=== PATIENT | female | born 1995 | race Two or more races ===

== ENCOUNTER → 2024-05-11 10:32 | Outpatient (BNVA) | payer OTHER, SELFPAY | PROVIDERS: PCP Pediatrics; Visit Provider Physician Assistant Surgical ==

== ENCOUNTER 2024-05-15 08:07 | Outpatient (AMB) | payer OTHER, SELFPAY ==
[2024-05-15 13:07] VITALS: BMI 36.5
--- NOTE | 2024-05-15 13:07 | A.OFFVIS_ITS ---
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 BMI 36.5 Allergies amoxicillin [AMOXICILLIN] Allergy (Intermediate, Verified 05/15/24 13:09) HIVES, SWELLING Penicillins [PENICILLINS] Allergy (Intermediate, Verified 05/15/24 13:09) HIVES, SWELLING Medication List - Last Reconciled 05/15/24 by Compa Mae MD clonidine HCl 0.3 mg PO BEDTIME PRN dextroamphetamine-amphetamine 10 mg (Adderall) 10 mg PO DAILY PRN dextroamphetamine-amphetamine 25 mg ER (Adderall XR) 25 mg PO DAILY HPI 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 BMI 36.5: Details: Start time: 1.01pm, End time: 1.46pm ?I spent 40 minutes speaking with the patient on the phone plus an additional 5 minutes reviewing and updating records for a total of 45 minutes HPI Comments Details: Previous weight loss efforts: self diet and exercised Wakes up: 6.45am to 8am, Sleeps: 10pm Breakfast: skips Lunch: 11am (peanut butter sandwich, ham and cheese sandwich, oatmeal) Dinner: 5-6pm (chicken or salmon with rice or potatoes) Snacks: 2-3pm (yogurt, chips, ice cream), 7-8pm (ice cream, cake, cookies) Exercise: none Beverages: Coffee: none, tea: hot tea: 1/wk (honey), soda: Regular Coke (4 cans/d), juice: none. ETOH: none PFSH Medical History (Updated 05/15/24 @ 13:43 by Compa Mae MD) Insomnia ADHD History of pancreatitis BMI 36.0-36.9,adult Obesity Surgical History (Updated 05/11/24 @ 11:18 by EMILIO León) Hx of knee surgery Hx of cholecystectomy Family History (Updated 05/11/24 @ 11:19 by EMILIO León) Mother Cervical cancer Maternal Grandmother Breast cancer Paternal Grandmother Diabetes Paternal Aunt Diabetes Telehealth Telehealth Telehealth Platform: Telephone Location of provider rendering services: practice address Location of patient: address on file Patient Identification confirmed using: Name, : Yes Telehealth method: voice only Patient verbally consented to treatment: Yes Patient verbally consented to billing insurance company: Yes Patient informed of any privacy concerns related to visit: Yes Minutes spent on Phone/Video with Pt.: 45 Assessment & Plan Assessment & Plan (1) Obesity: Code(s): E66.9 - Obesity, unspecified Category: Medical Qualifiers: Obesity type: due to excess calories Obesity classification: adult class 2 (BMI 35 - 39.9) Serious obesity comorbidity presence: without serious comorbidity Body mass index: BMI 36.0-36.9 Qualified Code(s): E66.812 - Obesity, class 2; E66.09 - Other obesity due to excess calories; Z68.36 - Body mass index [BMI] 36.0-36.9, adult Plan: 1.? Plan for lap sleeve gastrectomy. If diaphragmatic or ventral hernias are present at time of surgery, these will be repaired laparoscopically as well. I emphasized the importance of close follow-up, adherence to instructions and good communication. The surgery does not replace the need to change your lifestlyle which is the cause of the obesity problem. The surgery provides the motivation to try again to change your lifestyle, it reduces the appetite and make the transition to a better lifestyle easier and doubles the amount of weight you would lose compared to doing the lifestyle change without the surgery. You will need to be on a liquid diet with protein shakes for 2 weeks before surgery to maximize weight loss and boost your nutritional status to recover better from surgery and also for the first two weeks after surgery to let the stomach heal before we introduce other foods. After the first 2 weeks we will introduce protein bars and soft foods like scrambled eggs, cottage cheese and yogurt and after the 6th week will introduce meat, fish and cooked vegetables in small amounts. Over time you should be able to eat everything in small amounts. Side effects like nausea, vomiting, heartburn or abdominal pain are not common in the practice unless you are not following in the practice. This operation requires lifetime commitment to following in our practice and communication with me. You will much less weight and experience side effects if you don?t communicate or not following in the practice. Complications are rare and in our practice is about 1/10 of the national average. However, you can develop bleeding that may require transfusion (hasn?t happened for year in the practice), you may from complications (we did not have any deaths in the practice) and infections. Infections are usually a result of breakdown in communication or not understanding or following directions correctly. They are difficult to treat, they can happen during the first 6 weeks, they may require to be in the hospital for weeks or even months, not being able to eat by mouth and you may have drains and surgeries to try and correct the issue. Other risks and complications include possible conversion to an open procedure, leaks, small bowel obstruction, blood clots, cardiac, or pulmonary complications, as care home complications such as ulcers, insufficient weight loss and vitamin deficiencies. 2. You will receive a link of our software kade to generate an individualized nutritional and exercise plan specific for you. Please send me a screenshot of the plans you will generate Meal to include lean meat (beef, fish, pork, turkey, chicken), or st [place]enian yogurt, or egg whites, or beans with a salad with olive oil and fruits (berries, pears, apples, kiwi). Avoid salt, breads, potatoes, rice, pasta, desserts. ?3. If you choose shakes, each shake would be drunk slowly, like coffee in a period of 2 hours. ?4. If you choose bars, cut each bar in 4 pieces and eat each piece in 30min ?to make each bar last 2 hours. ?5. I emphasized the importance of measuring accurately the food portion and measure it when serving the food in plate ?6. The meal portions include a specific number of forks of meat and salad. You always eat the meat portion but you can replace up to half of salad/vegetables portion with rice, potatoes or pasta, or a fruit ?if you like. The less you do it the better weight loss will be. ?7. One full-size fork is what it can be scooped on the fork without falling aside and not what can be bit with the fork. Use regular forks like those you find in a typical restaurant. ?8.? Please buy the body composition scale we discussed and send me weight measurements as soon as possible and then once a week. Always include your diet and exercise plan. 9. The best choice would be to purchase a stationary bike, elliptical or treadmill at home that can track calories. You can create and exercise plan with the [employer] kade. ?10.?It is important of avoiding and for at least 18 months postoperatively and has been discussed at the infosession. ?11. Goal is to lose at least 1.5-2lbs per week ?12. Goal to lose 10% of your weight before surgery, which is about 20lbs. Ultimate weight goal: 186lbs before surgery 13. Please follow the diet plan exactly without any change. If you don't like something about the plan or you feel hungry you need to communicate with me so I can help you revise the plan. You should not change the plan yourself. 14. To be scheduled for EGD to assess the stomach's anatomy. The possibility of biopsies was discussed. Patient needs to avoid use of NSAIDs and aspirin for 1 week prior to EGD. You must be on liquids only the day before your endoscopy. Risks of perforation and bleeding was discussed with the patient. This will be an outpatient procedure with IV sedation. 15. Start the Zepbound when you get your body composition scale once a week. We discussed the potential side effects of Zepbound such as nausea, vomiting, abdominal pain, diarrhea and constipation and you will need to contact me if any of these symptoms occur or for any other new symptom you may experience Orders: Orders H Pylori Breath Test Today E66.9 - Obesity, unspecified, Z68.36 - Body mass index [BMI] 36.0-36.9, adult Complete Blood Count Auto Diff Today E66.9 - Obesity, unspecified, Z68.36 - Bod y mass index [BMI] 36.0-36.9, adult Vitamin B12 and Folate Today E66.9 - Obesity, unspecified, Z68.36 - Body mass index [BMI] 36.0-36.9, adult Vitamin B1 Today E66.9 - Obesity, unspecified, Z68.36 - Body mass index [BMI] 36.0-36.9, adult TSH reflex Free T4 Today E66.9 - Obesity, unspecified, Z68.36 - Body mass index [BMI] 36.0-36.9, adult Vitamin D 25-OH Total Today E66.9 - Obesity, unspecified, Z68.36 - Body mass index [BMI] 36.0-36.9, adult US abdomen comp w elastography Today E66.9 - Obesity, unspecified, Z68.36 - Body mass index [BMI] 36.0-36.9, adult XR chest 2V Today E66.9 - Obesity, unspecified, Z68.36 - Body mass index [BMI] 36.0-36.9, adult ECG 12 lead EKG Today E66.9 - Obesity, unspecified, Z68.36 - Body mass index [BMI] 36.0-36.9, adult FL upper GI w air Today E66.9 - Obesity, unspecified, Z68.36 - Body mass index [BMI] 36.0-36.9, adult Insulin Today E66.9 - Obesity, unspecified, Z68.36 - Body mass index [BMI] 36.0-36.9, adult Hemoglobin A1c Today E66.9 - Obesity, unspecified, Z68.36 - Body mass index [BMI] 36.0-36.9, adult Lipid Panel Today E66.9 - Obesity, unspecified, Z68.36 - Body mass index [BMI] 36.0-36.9, adult IRON PROFILE Today E66.9 - Obesity, unspecified, Z68.36 - Body mass index [BMI] 36.0-36.9, adult Comprehensive Met. Panel Today E66.9 - Obesity, unspecified, Z68.36 - Body mass index [BMI] 36.0-36.9, adult Zinc Today E66.9 - Obesity, unspecified, Z68.36 - Body mass index [BMI] 36.0- 36.9, adult C Reactive Protein Today E66.9 - Obesity, unspecified, Z68.36 - Body mass index [BMI] 36.0-36.9, adult Vitamin A Today E66.9 - Obesity, unspecified, Z68.36 - Body mass index [BMI] 36.0-36.9, adult Ferritin Today E66.9 - Obesity, unspecified, Z68.36 - Body mass index [BMI] 36.0-36.9, adult Referrals Behavioral Health Referral E66.9 - Obesity, unspecified, Z68.36 - Body mass index [BMI] 36.0-36.9, adult Nutrition/Dietitian Referral E66.9 - Obesity, unspecified, Z68.36 - Body mass index [BMI] 36.0-36.9, adult Medications: New tirzepatide (weight loss) (Zepbound) for 4 weeks 2.5 mg (0.5 mL) subcut QWEEK 2 mL 0RF E66.9 - Obesity, unspecified, Z68.36 - Body mass index [BMI] 36.0-36.9, adult
[2024-05-15 13:28] VITALS: BMI 36.5
== END 2024-05-15 13:47 | disposition home or self-care (01) ==
LOC: HO.HBS 08:07
PROVIDERS: PCP Pediatrics; Visit Provider Surgery
DX: E66.812 Obesity, class 2 (principal); Z68.36 Body mass index [BMI] 36.0-36.9, adult
CPT/HCPCS: 98010

== ENCOUNTER → 2024-05-15 08:07 | Outpatient (BNVA) | payer OTHER, SELFPAY | PROVIDERS: PCP Pediatrics; Visit Provider Surgery ==

== ENCOUNTER 2024-06-07 08:38 | Outpatient (REF) | payer OTHER, SELFPAY ==
--- NOTE | 2024-06-07 08:43 | ECG_ITS ---
Test Reason : obesity Blood Pressure : */* mmHG Vent. Rate : 68 BPM Atrial Rate : 68 BPM P-R Int : 182 ms QRS Dur : 80 ms QT Int : 382 ms P-R-T Axes : 40 32 18 degrees QTcB Int : 406 ms Normal sinus rhythm Normal ECG When compared with ECG of 12-Jul-2014 00:30, Vent. rate has decreased by 55 bpm Nonspecific T wave abnormality, improved in Inferior leads Nonspecific T wave abnormality no longer evident in Anterolateral leads Referred By: Compa Mae Electronically Signed By: NEREYDA GARCIA
[2024-06-07 09:02] LABS: MANUAL DIFF FLAG NO
[2024-06-07 09:46] LABS: Basophils Percent Auto 0.4 % (0-2); Eosinophils Absolute Auto 0.2 X10*3/uL (0.0-0.4); Eosinophils Percent Auto 2.4 % (0-4); Hematocrit 36.8 % (37.0-47.0); Hemoglobin 12.7 g/dl (12.0-16.0); Imm Gran Abs Auto 0.01 X10*3/uL (0.00-0.03); Imm Gran Pct Auto 0.1 % (0.0-0.4); Lymphocytes Percent Auto 25.6 % (20-40); Mean Corpuscular HGB Conc 34.5 g/dl (31.0-35.0); Mean Corpuscular Hemoglobin 27.7 pg (27.0-33.0); Mean Corpuscular Volume 80.3 fL (80.0-98.0); Mean Platelet Volume 9.1 fL (9.4-12.3); Monocytes Absolute Auto 0.4 X10*3/uL (0.1-1.2); Monocytes Percent Auto 4.8 % (2-11); Neutrophils Absolute Auto 5.1 x10*3/uL (2.0-8.3); Neutrophils Percent Auto 66.7 % (45-73); Platelet Count 345 X10*3/uL (160-400); Red Blood Count 4.58 X10*6/uL (4.20-5.50); Red Cell Distribution Width 12.6 % (11.0-16.0); White Blood Count 7.6 X10*3/uL (4.8-10.8)
[2024-06-07 10:28] LABS: Anion Gap 12 (12-20)
[2024-06-07 10:32] LABS: Alanine Aminotransferase 18 U/L (0-31); Albumin Level 3.7 g/dL (3.5-5.0); Alkaline Phosphatase 83 U/L (39-117); Aspartate Amino Transferase 15 U/L (5-31); Bilirubin Total 0.3 mg/dL (0.0-1.0); Blood Urea Nitrogen 13 mg/dL (9-16); C Reactive Protein 0.74 mg/dL (< or = 0.50); Calcium 8.5 mg/dL (8.4-10.2); Carbon Dioxide 23 mmol/L (22-29); Chloride 108 mmol/L (96-108); Cholesterol 144 mg/dL (<200); Estimated Glomerular Filt Rate > 60; Glucose Random 100 mg/dL (60-115); HDL Cholesterol 40 mg/dL (>40); Iron 43 mcg/dL (30-160); LDL Cholesterol Calculated 83 mg/dL (<100); Percent Iron Saturation 16 % (15-50); Potassium 3.7 mmol/L (3.3-5.1); Sodium 139 mmol/L (135-145); Total Iron Binding Capacity 265 mcg/dL (228-428); Triglycerides 107 mg/dL (<150); Unsaturated Iron Binding 222 ug/dL
[2024-06-07 10:58] LABS: Ferritin 32 ng/mL (10-122); TSH reflex Free T4 0.89 uIU/mL (0.32-4.0); Vitamin D 25-OH Total 10.7 ng/mL (>30)
[2024-06-07 11:00] LABS: Folate 5.2 ng/mL (> or = 4.0); Vitamin B12 379 pg/mL (200-900)
[2024-06-07 11:04] LABS: Estimated Average Glucose 94 mg/dL; Hemoglobin A1C 101.0204 umol/L; Hemoglobin A1c % 4.9 % (<6.0); Total Hemoglobin (HGBA1C) 3373.8835 umol/L
[2024-06-07 11:08] LABS: Insulin 16 uU/mL (2-29)
[2024-06-10 07:33] LABS: Zinc 54 mcg/dL (60-130)
[2024-06-10 18:34] LABS: Vitamin A 44 mcg/dL (38-98)
[2024-06-15 18:13] LABS: Vitamin B1 11 nmol/L (8-30)
== END 2024-06-07 08:39 | disposition home or self-care (01) ==
LOC: HO.XRAY 08:38
PROVIDERS: PCP Family Medicine; Visit Provider Surgery
DX: E66.9 Obesity, unspecified (principal); Z68.36 Body mass index [BMI] 36.0-36.9, adult; Z13.1 Encounter for screening for diabetes mellitus
CPT/HCPCS: 36415; 80053; 80061; 82306; 82607; 82728; 82746; 83036; 83525; 83540; 84425; 84443; 84590; 84630; 85025; 86140; 93005

== ENCOUNTER → 2024-06-07 08:43 | Outpatient (BNV) | payer OTHER, SELFPAY | PROVIDERS: PCP Family Medicine; Visit Provider Internal Medicine | DX: E66.9 Obesity, unspecified (principal) | CPT/HCPCS: 93010 ==

== ENCOUNTER 2024-07-17 11:19 | Day surgery (SDC) | payer OTHER, SELFPAY ==
--- NOTE | 2024-07-14 14:59 | HO.ANESPROP2 ---
Documented by User: Lainey Gaitan NP 07/14/24 15:00 HPI - Anesthesia Eval Consult details Narrative: 28yo F for Upper Endoscopy PMFSH Active Problems Active Problems: All Active Problems Zinc deficiency (Acute) Vitamin B12 deficiency (Acute) Vitamin D deficiency (Acute) Insomnia (Acute) ADHD (Acute) BMI 36.0-36.9,adult (Acute) Obesity (Acute) Past Medical History Medical History (Updated 06/20/24 @ 23:03 by Compa Mae MD) Insomnia ADHD History of pancreatitis BMI 36.0-36.9,adult Obesity Family History Family History (Updated 05/11/24 @ 11:19 by EMILIO León) Mother Cervical cancer Maternal Grandmother Breast cancer Paternal Grandmother Diabetes Paternal Aunt Diabetes Surgical History Surgical History (Updated 07/17/24 @ 12:19 by Homa Miles RN) History of tubal ligation Hx of knee surgery Hx of cholecystectomy Social History Social History Patient Tobacco Use Status: Never used Tobacco Have you been hit, kicked, punched, or otherwise hurt by someone within the past year? If so, by whom?: No Are you DNR?: No Advance Directives: No Advance Directives Information Provided: Yes Patient : No Meds Allergies Allergy/AdvReac Type Severity Reaction Status Date / Time amoxicillin [AMOXICILLIN] Allergy Intermediate HIVES, Verified 05/15/24 13:09 SWELLING Penicillins [PENICILLINS] Allergy Intermediate HIVES, Verified 05/15/24 13:09 SWELLING Home Medications ?Medication ?Instructions ?Recorded ?Confirmed ?Last Taken ?Type clonidine HCl 0.3 mg tablet 0.3 mg PO BEDTIME PRN Sleep 05/11/24 07/17/24 Unknown History dextroamphetamine-amphetamine 10 10 mg PO DAILY 05/11/24 07/17/24 Unknown History mg tablet (Adderall) dextroamphetamine-amphetamine ER 25 mg PO DAILY 05/11/24 07/17/24 Unknown History 25 mg 24hr capsule,extend release (Adderall XR) Assessment and Plan Assessment Anesthesia Assessment: Chart Reviewed Documented by User: Shelly Santamaria MD 07/17/24 13:08 PMFSH Past Medical History Medical History (Updated 06/20/24 @ 23:03 by Compa Mae MD) Insomnia ADHD History of pancreatitis BMI 36.0-36.9,adult Obesity Family History Family History (Updated 05/11/24 @ 11:19 by EMILIO León) Mother Cervical cancer Maternal Grandmother Breast cancer Paternal Grandmother Diabetes Paternal Aunt Diabetes Family history of problems with anesthesia: No Surgical History Surgical History (Updated 07/17/24 @ 12:19 by Homa Miles RN) History of tubal ligation Hx of knee surgery Hx of cholecystectomy History of Problems with Anesthesia: No Social History Social History Patient Tobacco Use Status: Never used Tobacco Have you been hit, kicked, punched, or otherwise hurt by someone within the past year? If so, by whom?: No Are you DNR?: No Advance Directives: No Advance Directives Information Provided: Yes Patient : No Meds Allergies Allergy/AdvReac Type Severity Reaction Status Date / Time amoxicillin [AMOXICILLIN] Allergy Intermediate HIVES, Verified 05/15/24 13:09 SWELLING Penicillins [PENICILLINS] Allergy Intermediate HIVES, Verified 05/15/24 13:09 SWELLING Home Medications ?Medication ?Instructions ?Recorded ?Confirmed ?Last Taken ?Type clonidine HCl 0.3 mg tablet 0.3 mg PO BEDTIME PRN Sleep 05/11/24 07/17/24 Unknown History dextroamphetamine-amphetamine 10 10 mg PO DAILY 05/11/24 07/17/24 Unknown History mg tablet (Adderall) dextroamphetamine-amphetamine ER 25 mg PO DAILY 05/11/24 07/17/24 Unknown History 25 mg 24hr capsule,extend release (Adderall XR) Exam Airway Mallampati Class: II TM Dist: >3cm Neck ROM: Full Heart: rrr Lungs: cta Assessment and Plan Assessment Anesthesia Assessment: Anesthesia Plan Discussed Final Anesthetic Review Family History of Problems with Anesthesia: No History of Problems with Anesthesia: No NPO: Yes ASA Class: III Final Preanesthetic Review: No Changes in Pt Med Stat, Meds/Allgs Chart Reviewed, Consent Obtained/Reviewed and Anes Risks/Benef Reviewed Patient Risk: Intermediate Procedure Risk: Low Anesthetic Plan Anesthetic Plan: MAC: Disposition: Standard PACU
[2024-07-17 06:50] VITALS: BMI 36.7
[2024-07-17 11:59] LABS: UPreg QC Valid YES; Urine Pregnancy NEGATIVE (NEGATIVE)
[2024-07-17 12:20] VITALS: BP 105/62; PULSE 80; RESP 18; TEMP 36.1; O2SAT 98; BMI 35.8
[2024-07-17] MEDS: Lactated Ringers 1,000 ML 100 ML IVCONT (12:24)
--- NOTE | 2024-07-17 13:25 | P.HPSUR_ITS ---
Pre-Procedural Eval Section A - 24 Hr Update-Section A only Date of Service: 07/17/24 The patient is an INPATIENT: No The patient has been examined within 24 hours of the surgical procedure. The History & Physical has been completed within 30 days and I have reviewed it.: Yes Section B - Complete if H&P > 30 days Chief Complaint: Morbid (severe) obesity due to excess calories Relevant Family History (Specify if Yes): No Relevant Social History: None Present Medications: None Medical History: No relevant PMH History of Previous Operations: No relevant previous surgery Allergies: Allergies Allergy/AdvReac Type Severity Reaction Status Date / Time amoxicillin [AMOXICILLIN] Allergy Intermediate HIVES, Verified 05/15/24 13:09 SWELLING Penicillins [PENICILLINS] Allergy Intermediate HIVES, Verified 05/15/24 13:09 SWELLING Review of Systems Sugical H&P ROS: Negative: Constitution, Cardiovascular, Respiratory, Neurological, Psychiatric, Hem-Onc, Allergic/Immunologic, Gastrointestinal, Genitourinary, Musculoskeletal, Integumentary, Endocrine and Eyes/Ears/Nose/Throat Exam Surgical H&P Exam: Normal: HEENT, Normal: Heart, Normal: Lungs, Normal: Extremities, Normal: Abdomen, Normal: Skin and Normal: Neurological Plan Diagnosis/Plan: Unchanged (EGD to assess the stomach's anatomy. Risks of blee ding and perforation were discussed with the patient and she is in agreement with the plan.) I have reviewed the history and physical and performed a pertinent physical examination on my patient. No changes have occurred unless specified. Time Spent With Patient Time: Total time managing care of this patient today ____ minutes.
--- NOTE | 2024-07-17 13:29 | PM.OP ---
Brief Operative Note Date of Service: 07/17/24 Pre-op diagnosis: Severe obesity Post-op diagnosis: same Procedure: PROCEDURE DATE: 07/17/2024 PREOPERATIVE DIAGNOSIS: Obesity POSTOPERATIVE DIAGNOSIS: ?Same as above. Normal endoscopy PROCEDURE: [id number] with biopsies Surgeon: Yolanda Mae M.D.. Ph.D. Regional Truck Driver: None ? Anesthesia: IV sedation Estimated blood loss: ?Minimal FINDINGS AND PROCEDURE: ? OPERATIVE INDICATIONS: ?The patient is a 28 year old female known to me who is interested in bariatric surgery. Based on this information I recommended an upper endoscopy to evaluate the stomach's anatomy. Risks and complications of the surgery were discussed with the patient in advance particularly the possibility of perforation or bleeding that may require surgical intervention. The patient understood the risks and was in agreement with the plan. ? PROCEDURE: After informed consent was obtained by the patient, the patient was ?transferred to the Operating Room and was placed in the supine position.? After successful induction of IV sedation, a mouth block was inserted and the patient was placed in the left lateral decubitus position. An upper endoscopy was performed next, the oropharynx and esophagus appeared within the normal limits. There was no hiatal hernia. The z-line was smooth. Two biopsies were obtained from the distal esophagus 2-3 cm proximal to the GE junction and two additional biopsies from the GE junction. The stomach was entered and it appeared to be of normal size. There was no gastritis. There was no stricture or ulcer. A biopsy was obtained from the gastric fundus and the antrum. No significant bleeding was noted from any of the biopsy sites. Retroflexion of the scope confirmed a normal GE junction. The scope was then advanced into the duodenum which appeared to be normal as well. At that point the duodenum ?and the stomach were decompressed and the scope was withdrawn from the patient's mouth. The patient extubated and was transferred in stable condition to the Recovery Room for further care. I was present and performed all steps of the procedure. There were no residents to assist with this case. Kieran Mae M.D., Ph.D. Surgeon: Compa Mae MD Anesthesia: MAC Was an Regional Truck Driver used for this Procedure?: No Estimated blood loss (mL): 0 IV fluids (mL): 400 Urine output (mL): 0 (No Richardson to record output) Pathology: other (1) antrum x1, 2) fundus x1, 3) GE junction x2, 4) distal esophagus x2) Condition: stable Disposition: PACU
[2024-07-17 14:02] VITALS: BP 108/65; RESP 16; TEMP 36.2; O2SAT 100
[2024-07-17 14:17] VITALS: BP 109/65; PULSE 77; RESP 16; TEMP 36.3; O2SAT 99
== END 2024-07-17 14:39 | disposition home or self-care (01) ==
PROVIDERS: Nurse Practitioner; PCP Family Medicine; Visit Provider Surgery
PROC: 0DJ08ZZ Inspection of Upper Intestinal Tract, Via Natural or Artificial Opening Endoscopic (ICD-10-PCS; CPT 43235; principal; 2024-07-17 13:10)
DX: E66.01 Morbid (severe) obesity due to excess calories (principal); Z68.36 Body mass index [BMI] 36.0-36.9, adult; Z87.19 Personal history of other diseases of the digestive system; F90.9 Attention-deficit hyperactivity disorder, unspecified type; G47.00 Insomnia, unspecified; Z79.899 Other long term (current) drug therapy; Z88.0 Allergy status to penicillin; Z88.1 Allergy status to other antibiotic agents; Z90.49 Acquired absence of other specified parts of digestive tract
CPT/HCPCS: 43239; 81025; 88305; 88313; 88342; J2003; J2704; J3010

== ENCOUNTER → 2024-07-17 11:19 | Outpatient (BNV) | payer OTHER, SELFPAY | PROVIDERS: PCP Family Medicine; Visit Provider Surgery | DX: E66.9 Obesity, unspecified (principal); Z68.36 Body mass index [BMI] 36.0-36.9, adult | CPT/HCPCS: 43239 ==

== ENCOUNTER 2024-08-09 08:24 | Outpatient (REF) | payer OTHER, SELFPAY ==
--- NOTE | ~2024-08-09 | FL_ITS ---
EXAMINATION: XR FLUOROSCOPY UPPER GI SERIES CLINICAL INFORMATION: Obesity, unspecified, preoperative bariatric. Patient has no complaints. COMPARISON: None TECHNIQUE: Fluoroscopic air contrast upper GI examination was performed utilizing standard techniques with thin and thick barium and effervescent granules. Numerous spot images were obtained. Several fluoroscopic image hold cine sequences were also obtained. FINDINGS: Mildly limited exam due to patient nausea and retching. This limits sensitivity. UPPER GI SERIES: Lateral cine images of the oropharynx and hypopharynx demonstrate normal swallow mechanism with normal epiglottic inversion and soft palate elevation. No laryngeal penetration, glottic or subglottic aspiration identified. No nasopharyngeal reflux present. Hypopharyngeal structures appear normal without evidence of mass or diverticulum. There was no significant cricopharyngeal achalasia. Dual and single contrast images of the esophagus demonstrate normal caliber, contour, and mucosal pattern. No evidence of stricture, mass, or ulcerations identified. Esophageal peristalsis was normal. No evidence of hiatus hernia identified. No significant gastroesophageal reflux was seen during the course of the examination and on reflux views. Dual contrast and single contrast images of the stomach demonstrated normal contour and mucosal pattern without evidence of mass, ulceration, or other abnormality. Normal rugal fold pattern. Contrast freely passed into the gastric antrum and duodenal bulb without delay. Single and air-contrast images of the duodenal bulb demonstrate no abnormality. The duodenal sweep has a normal appearance, course, and mucosal fold appearance. There are cholecystectomy clips present. FLUOROSCOPY TIME: 1 minute, 50 seconds Number of Spot Images:7 Number of cines obtained: 5 DOSE AREA PRODUCT: [id number] uGy-m2 (microgray-meter squared) FL/FL upper GI w air IMPRESSION: 1. Normal upper GI series allowing for mild limitation from patient nausea and retching. Electronically signed by: Oz Case MD 08/09/2024 09:43 AM EDT RP
--- OUTSIDE RECORDS SUMMARY | 2024-08-09 08:37 | XMS_ITS | Patient Health Record ---
Author Organization [facility] Address [address] [place] [address] Care Team Providers Care Lime Trimmer Name Role Phone Katy Ambrose CNP Primary Care Provider Unava ilable Marcus Barron Unavailable [phone] Brenton MARCIAL, Xavier Unavailable Unavailable Reason For Referral No Information Plan Of Treatment No Information Insurance Providers Payer Name Payer Address Payer Phone Subscriber Number Group Number Insured Name Patient Relationship to Insured Coverage Start Date Coverage End Date [facility] [address] [address] [place], [place] [id number] [id number] Self - patient is the insured
== END 2024-08-09 08:25 | disposition home or self-care (01) ==
LOC: HO.XRAY 08:24
PROVIDERS: PCP Family Medicine; Visit Provider Surgery
DX: Z01.818 Encounter for other preprocedural examination (principal); E66.9 Obesity, unspecified; Z68.36 Body mass index [BMI] 36.0-36.9, adult
CPT/HCPCS: 74246

== ENCOUNTER → 2024-08-09 08:26 | Outpatient (BNV) | payer OTHER, SELFPAY | PROVIDERS: PCP Family Medicine; Visit Provider Radiology Diagnostic Radiology | DX: E66.9 Obesity, unspecified (principal) | CPT/HCPCS: 74246 ==

== ENCOUNTER 2024-10-04 12:12 | Outpatient (AMB) | payer OTHER, SELFPAY ==
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
--- OUTSIDE RECORDS SUMMARY | 2024-10-04 13:15 | XMS_ITS | Patient Health Record ---
Author Organization [facility] Address [address] [place] [address] Care Team Providers Care Foundry Metallurgist Name Role Phone Katy Ambrose CNP Primary Care Provider Unava ilable Marcus Barron Unavailable [phone] Brenton MARCIAL, Xavier Unavailable Unavailable Reason For Referral No Information Plan Of Treatment No Information Insurance Providers Payer Name Payer Address Payer Phone Subscriber Number Group Number Insured Name Patient Relationship to Insured Coverage Start Date Coverage End Date [facility] [address] [address] [place], [place] [id number] NIYA TSAI Self - patient is the insured
--- OUTSIDE RECORDS SUMMARY | 2024-10-04 13:16 | XMS_ITS | Encounter Summary ---
Author Organization [facility] Address [address] [place] [address] Phone Care Team Providers Care Payroll Machine Operator Name Role Phone Yusef Denise MD Unavailable Madeleine Jennings MD Unavailable [phone] Scottie Hannon MD Unavailable [phone] Shana Guradado MD Unavailable [phone] Hugo Rosa MD, MPH Primary Care Provider + Hugo Rosa MD, MPH Unavailable [phone] Lauryn Rae Primary Care Provider [phone] Carolyn Levy MD Unavailable [phone] Encounter Details Date Type Department Care Team (Late st Contact Info) Description 03/20/2021 Procedure Pass [place] Admitting Dept - Virtual Department [address] [place] [address] Social History Tobacco Use Types Packs/Day Years Used Date Smoking Tobacco: Never Smokeless Tobacco: Never Alcohol Use Standard Drinks/Week Comments No 0 (1 standard drink = 0.6 oz pur e alcohol) Comments Yes Sex and Gender Information Value Date Recorded Sex Assigned at Female 09/09/2018 12:26 AM EDT Legal Sex Female 8:51 PM EDT Gender Identity Female 09/09/2018 12:26 AM EDT Sexual Orientation Straight 09/09/2018 12 :26 AM EDT 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 Not on file Not on file Not on file documented as of this encounter Plan of Treatment Not on file documented as of this encounter Visit Diagnoses Not on filedocumented in this encounter Additional Health Concerns Infection Onset Date Last Indicated Resolved Time CoV-Risk 07/14/2021 07/14/2021 07/25/2021 1:22 AM EDT CoV-Risk 10/12/2021 10/12/2021 10/13/2021 1:01 PM EDT CoV-Presumed 10/12/2021 10/12/2021 11/02/2021 1:22 AM EDT CoV-Risk 10/13/2023 10/13/2023 10/24/2023 1:22 AM EDT CoV-Risk 02/04/2024 02/04/2024 02/15/2024 1:22 AM EST documented as of this encounter Care Teams Payroll Machine Operator Relationship Specialty Start Date End Date Hugo Rosa MD, MPH [address] [place] [address] [email or web address] PCP - General Family Medicine 11/07/20 07/13/21 Lauryn Rae PA [address] [place] [address] [email or web address] PCP - General Unknown Provider Specialty 07/14/21 Yusef Denise MD [address] [place] [id number] [email or web address] Historical LMR Provider 12/02/16 Madeleine Jennings MD [address] [place] [id number] Historical LMR Provider 12/02/16 Scottie Hannon MD [address] [place] [id number] Historical LMR Provider 12/02/16 Shana Guardado MD [address] [place] [id number] Historical LMR Provider 12/02/16 Hugo Rosa MD, MPH [address] [place] [address] Insurance Assigned Provider 12/21/20 09/20/21 Carolyn Levy MD [address] [place] [address] Insurance Assigned Provider 11/22/21 10/24/22 documented as of this encounter Additional Source Comments The information contained in this document represents components of the legal health record. It is not the complete legal health record.[facility]
== END 2024-10-04 13:01 | disposition home or self-care (01) ==
LOC: HO.HBST 12:12
PROVIDERS: PCP Family Medicine; Visit Provider Counselor Mental Health
DX: F90.9 Attention-deficit hyperactivity disorder, unspecified type (principal); F31.9 Bipolar disorder, unspecified; F41.9 Anxiety disorder, unspecified; Z71.89 Other specified counseling
CPT/HCPCS: 90791

== ENCOUNTER 2024-11-13 12:14 | Outpatient (AMB) | payer OTHER, SELFPAY ==
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
--- OUTSIDE RECORDS SUMMARY | 2024-11-13 13:31 | XMS_ITS | Patient Health Record ---
Author Organization [facility] Address [address] [place] [address] Care Team Providers Care Kitchen Designer Name Role Phone Katy Ambrose CNP Primary Care Provider Unava ilable Marcus Barron Unavailable [phone] Brenton MARCIAL, Xavier Unavailable Unavailable Reason For Referral No Information Plan Of Treatment No Information Insurance Providers Payer Name Payer Address Payer Phone Subscriber Number Group Number Insured Name Patient Relationship to Insured Coverage Start Date Coverage End Date [facility] [address] [address] [place], [place] [id number] NIYA TSAI Self - patient is the insured
== END 2024-11-13 13:10 | disposition home or self-care (01) ==
LOC: HO.HBST 12:14
PROVIDERS: PCP Family Medicine; Visit Provider Counselor Mental Health
DX: F31.9 Bipolar disorder, unspecified (principal); F90.9 Attention-deficit hyperactivity disorder, unspecified type; F41.9 Anxiety disorder, unspecified; Z71.89 Other specified counseling
CPT/HCPCS: 90792